=== PATIENT | female | born 1950 | race Caucasian/White ===

== ENCOUNTER 2016-10-14 05:05 | Emergency (ER) | payer MEDICARE ==
[~2016-10-14] VITALS: Ht 152.4 cm; Wt 84.5 kg
[~2016-10-14 05:05] MED LIST: CARAFATE 1GM1 G PO; CEPHALEXIN500 M1 PO; CHANTIX 1MG1 MG PO; GLIPIZIDE10 MG PO; GLUCOPHAGE1000 MG PO; GLUCOTROL XL10 MG PO; HYDROCODONE/APAP; LASIX 40MG TABL40 MG PO; LORTAB 5/500 501 TAB PO; METFORMIN500 MG PO; NEURONTIN800 MG/TAB PO; NO HOME MEDICATIONS; NORCO 325 MG-51 TAB PO; NORCO 325 MG-7.1 TAB PO; PRILOSEC 20MG20 MG PO; SYNTHROID0.125 MG/T PO; TRILIPIX 135MG; TUSS PO; ZOFRAN 4MG T4 MG/TAB PO; [UNRECOGNIZED DRUG - OTHER]
[2016-10-14 05:07] VITALS: BP 139/67; PULSE 88; TEMP 98.2
[2016-10-14] MEDS ORDERED: PRAVACHOL 40MG40 MG PO (05:13)
[2016-10-14] MEDS ORDERED: LOPID 600M600 MG/TAB PO (05:13)
[2016-10-14] MEDS ORDERED: PREDNISONE20 MG PO (06:09)
[2016-10-14] MEDS ORDERED: VOLTAREN 75 DR75 MG PO (06:09)
== END 2016-10-14 06:19 | disposition home or self-care (01) ==
LOC: COL.ER 05:05
DX: M25.551 Pain in right hip (principal); E11.9 Type 2 diabetes mellitus without complications; G89.29 Other chronic pain; M54.9 Dorsalgia, unspecified; Z79.84 Long term (current) use of oral hypoglycemic drugs
CPT/HCPCS: J1885; J7512

== ENCOUNTER → 2018-01-27 | Outpatient (CLI) | payer MEDICARE ==
[~2018-01-27] MED LIST changes: +LOPID 600M600 MG/TAB PO; +PRAVACHOL 40MG40 MG PO; +PREDNISONE20 MG PO; +VOLTAREN 75 DR75 MG PO
== END ==
LOC: MC.RAD 09:20
DX: Z12.31 Encounter for screening mammogram for malignant neoplasm of breast (principal)

== ENCOUNTER 2021-01-30 15:05 | Emergency (ER) | payer MEDICARE ==
[~2021-01-30] VITALS: Ht 152.4 cm; Wt 79.5 kg
[2021-01-30 16:12] LABS: ALBUMIN 3.9 gm/dL (3.5-5.0); BILIRUBIN,TOTAL 0.6 mg/dL (0.0-1.0); CALCIUM 8.5 mg/dL (8.4-10.2); CREATININE, serum 0.5 (0.52-1.25); TOTAL PROTEIN 7.4 gm/dL (6.4-8.2)
[2021-01-30 16:28] LABS: BASO % 0.2 % (0.0-2.0); EOS % 0.2 % (0-4.0); GRAN # 2.9 (1.4-6.5); GRAN % 68.8 % (42.2-75.2); HEMATOCRIT 37.2 % (37.0-47.0); HEMOGLOBIN 11.6 g/dl (12.5-16.0); LYMPH # 0.9 (1.2-3.4); LYMPH % 20.7 % (20.0-51.0); MEAN CELL VOLUME 81 fl (80.0-100.0); MEAN CORPUSCULAR HEMOGLOBIN 25 pg (27.0-31.0); MEAN CORPUSCULAR HGB CONC 31 g/dl (33.0-37.0); MEAN PLATELET VOLUME 11.8 fl (7.4-10.4); MONO # 0.4 (0.1-0.6); MONO % 9.6 % (1.7-9.3); PLATELET COUNT 117 K/mm3 (130-400); RED BLOOD COUNT 4.58 M/mm3 (4.10-5.30)
[2021-01-30] MEDS ORDERED: AMOXICILLIN 8751 TAB PO (16:45)
[2021-01-30 18:32] VITALS: BP 122/72; PULSE 83
[2021-01-31] MEDS ORDERED: EUTHYROX PO (12:13)
[2021-01-31] MEDS ORDERED: LIPITOR 40MG TA40 MG PO (12:14)
[2021-01-31] MEDS ORDERED: PRINIVIL10 MG PO (12:15)
[2021-01-31] MEDS ORDERED: LYRICA 50MG CAP50 MG PO (12:15)
== END 2021-01-30 18:32 | disposition left against medical advice (07) ==
LOC: COL.ER 15:05
PROVIDERS: Personal Emergency Response Attendant
DX: R41.82 Altered mental status, unspecified (principal); E11.649 Type 2 diabetes mellitus with hypoglycemia without coma; R09.02 Hypoxemia; Z79.84 Long term (current) use of oral hypoglycemic drugs
CPT/HCPCS: J0456; J0696; J2405; J7030; J7050

== ENCOUNTER 2021-01-31 04:46 | Inpatient (IN) | payer MEDICARE ==
[~2021-01-31] VITALS: Ht 172.7 cm; Wt 81.6 kg
[~2021-01-31 04:46] MED LIST changes: +AMOXICILLIN 8751 TAB PO
[2021-01-31 05:57] LABS: BASO % 0.5 % (0.0-2.0); GRAN # 3.4 (1.4-6.5); GRAN % 75.7 % (42.2-75.2); HEMOGLOBIN 10.6 g/dl (12.5-16.0); LYMPH # 0.7 (1.2-3.4); LYMPH % 14.7 % (20.0-51.0); MEAN CELL VOLUME 81 fl (80.0-100.0); MEAN CORPUSCULAR HEMOGLOBIN 25 pg (27.0-31.0); MEAN CORPUSCULAR HGB CONC 31 g/dl (33.0-37.0); MEAN PLATELET VOLUME 11.7 fl (7.4-10.4); MONO # 0.4 (0.1-0.6); MONO % 8.6 % (1.7-9.3); PLATELET COUNT 103 K/mm3 (130-400); RED BLOOD COUNT 4.17 M/mm3 (4.10-5.30); REDCELL DISTRIBUTION WIDTH-CV 16.5 % (11.5-14.5)
[2021-01-31 06:02] LABS: HEMATOCRIT 33.8 % (37.0-47.0)
[2021-01-31 06:08] LABS: ALANINE AMINOTRANSFERASE 80 U/L (4-34); ALBUMIN 3.4 gm/dL (3.5-5.0); ALKALINE PHOSPHATASE 107 U/L (50-136); ANION GAP 7 mmol/L (7-16); AST,SGOT 93 U/L (15-37); BILIRUBIN,TOTAL 0.4 mg/dL (0.0-1.0); BLOOD UREA NITROGEN 12 mg/dL (7-17); CALCIUM 7.9 mg/dL (8.4-10.2); CARBON DIOXIDE 28 mmol/L (22-30); CHLORIDE 98 mmol/L (98-107); CREATININE, serum 0.51 (0.52-1.25); GLUCOSE 60 mg/dL (74-106); POTASSIUM 4.1 mmol/L (3.4-5.0); SODIUM 133 mmol/L (137-145); TOTAL PROTEIN 6.9 gm/dL (6.4-8.2)
[2021-01-31 06:34] LABS: TROPONIN-I < 0.012 ng/mL (0.000-0.035)
[2021-01-31] MEDS ORDERED: EUTHYROX PO (12:13)
[2021-01-31] MEDS ORDERED: LIPITOR 40MG TA40 MG PO (12:14)
[2021-01-31] MEDS ORDERED: PRINIVIL10 MG PO (12:15)
[2021-01-31] MEDS ORDERED: LYRICA 50MG CAP50 MG PO (12:15)
[2021-01-31 12:58] VITALS: BP 104/43; PULSE 78; TEMP 98.9
[2021-01-31 17:15] VITALS: BP 107/50; PULSE 76; TEMP 98.8
--- NOTE | 2021-01-31 19:00 | NUR ---
Patient arrived to the floor from ED. Patient has c/o pain, as she does have chronic back pain. Patient has been having loose stools. They are dark green in color. Patient is incontinent but independent with care.
--- NOTE | 2021-01-31 19:13 | NUR ---
New IV started in the right forearm by PEDRO Yancey.
[2021-01-31 19:41] VITALS: BP 110/54; PULSE 65; TEMP 98.3
--- NOTE | 2021-01-31 22:23 | NUR ---
PT RESTING IN BED. EVENING MEDICATIONS GIVEN. PT ON 2L NC, LUNG SOUNDS ARE DIMINISHED. PT STATES SHES IN PAIN, TYLENOL GIVEN PER ORDERS. PT HAS A PRODUCTIVE COUGH BUT STATES SHE HAS NOT SEEN WHAT THE SPUTUM LOOKS LIKE. DENIES ANY OTHER NEEDS AT THIS TIME. WILL CONTINUE TO MONITOR.
[2021-02-01 00:07] VITALS: BP 108/53; PULSE 59; TEMP 98.9
[2021-02-01 04:17] VITALS: BP 96/44; PULSE 66; TEMP 97.8
[2021-02-01 07:53] LABS: BASO % 0.2 % (0.0-2.0); GRAN # 3.9 (1.4-6.5); GRAN % 80.4 % (42.2-75.2); HEMATOCRIT 34.9 % (37.0-47.0); HEMOGLOBIN 10.3 g/dl (12.5-16.0); LYMPH # 0.6 (1.2-3.4); LYMPH % 12.7 % (20.0-51.0); MEAN CELL VOLUME 85 fl (80.0-100.0); MEAN CORPUSCULAR HEMOGLOBIN 25 pg (27.0-31.0); MEAN CORPUSCULAR HGB CONC 30 g/dl (33.0-37.0); MEAN PLATELET VOLUME 11.3 fl (7.4-10.4); MONO # 0.3 (0.1-0.6); MONO % 6.3 % (1.7-9.3); PLATELET COUNT 121 K/mm3 (130-400); REDCELL DISTRIBUTION WIDTH-CV 16.8 % (11.5-14.5)
[2021-02-01 08:02] LABS: CALCIUM 8.4 mg/dL (8.4-10.2); CREATININE, serum 0.45 (0.52-1.25); POTASSIUM 4.1 mmol/L (3.4-5.0)
[2021-02-01 08:42] VITALS: BP 99/38; PULSE 76; TEMP 101
--- NOTE | 2021-02-01 09:15 | NUR ---
Patient laying in bed upon entering the room. She is mad that she has not received her hydrocodone yet. Patient also requesting medication for her diarrhea. This RN notified the hospitalist. Whilst this RN was flushing the patient's IV with NS, the patient screamed, stating, "Oh thats just horrible". There is a bit of resistance when flushing and some mild ecchymosis is present above the IV site. This RN stopped and is waiting to give IV medications until it is decided if the patient needs PICC placement.
[2021-02-01 13:07] VITALS: BP 105/46; PULSE 76; TEMP 99.6
[2021-02-01 16:00] VITALS: BP 102/49; PULSE 94; TEMP 98.7
--- NOTE | 2021-02-01 18:06 | NUR ---
Patient frustrated that she can only receive her PRN pain medication every 8hrs. All medications administered. Handled PICC placement well.
[2021-02-01 20:39] VITALS: BP 123/57; PULSE 63; TEMP 99.4
--- NOTE | 2021-02-01 22:27 | NUR ---
Patient alert and oriented. Patient denies SOB or dyspnea. Patient currently on oxygen 3L via NC. Breathing even and unlabored. Occasional non-productive moist cough noted. Scheduled cough med given per JUL. Patient reports moderate pain to her lower extremities. Scheduled pain med given per JUL. Call light within reach. Will continue to monitor.
[2021-02-02] VITALS: BP 108/56; PULSE 66; TEMP 99
[2021-02-02 03:25] VITALS: BP 131/66; PULSE 60; TEMP 98.3
--- NOTE | 2021-02-02 07:44 | NUR ---
paste up worker spoke with patient to discuss discharge planning. Patient states she resides with her spouse and plans to return there upon discharge. Patient states she is independent with her activities of daily living at home and currently in her room. Patient's primary care provides is Dr Roberto. Patient states she does not have advance directives and is not interested in making them. Patient plans to return home upon discharge.
[2021-02-02 07:58] LABS: MEAN CELL VOLUME 81 fl (80.0-100.0); MEAN CORPUSCULAR HGB CONC 31 g/dl (33.0-37.0); MEAN PLATELET VOLUME 11.3 fl (7.4-10.4); PLATELET COUNT 120 K/mm3 (130-400); RED BLOOD COUNT 3.53 M/mm3 (4.10-5.30); REDCELL DISTRIBUTION WIDTH-CV 16.9 % (11.5-14.5)
[2021-02-02 08:01] LABS: C-REACTIVE PROTEIN 5.3 mg/dL (0.0-0.9); CALCIUM 7.8 mg/dL (8.4-10.2); CREATININE, serum 0.4 (0.52-1.25); POTASSIUM 3.7 mmol/L (3.4-5.0)
[2021-02-02 08:10] LABS: HEMATOCRIT 28.7 % (37.0-47.0); HEMOGLOBIN 8.8 g/dl (12.5-16.0); MEAN CORPUSCULAR HEMOGLOBIN 25 pg (27.0-31.0)
[2021-02-02 09:47] VITALS: BP 115/62; PULSE 66; TEMP 97.8
--- NOTE | 2021-02-02 10:50 | NUR ---
Pt awake upon entry to room, minor C/O pain. Shift assessment complete, left Pt call light in light in reach. bed in lowest position.
[2021-02-02 11:10] LABS: PLATELET ESTIMATE DECREASED (NORMAL)
[2021-02-02 11:11] LABS: HYPOCHROMIA 2+; OVALOCYTES 1+; POIKILOCYTOSIS 1+
[2021-02-02 11:12] LABS: ANISOCYTOSIS 1+
[2021-02-02 13:00] VITALS: BP 127/56; PULSE 65; TEMP 98.4
[2021-02-02] MEDS ORDERED: EUTHYROX137 MCG PO (14:23)
[2021-02-02 16:58] VITALS: BP 106/47; PULSE 56; TEMP 97.3
[2021-02-02 20:00] VITALS: BP 117/74; PULSE 82; TEMP 98
--- NOTE | 2021-02-02 23:14 | NUR ---
ALERT AND OX4. DENIES SOA, CHEST PAIN OR DIZZY. BLOOD SUGAR TX PER SLIDING SCALE. PICC LINE RT UPPER ARM FLUSHED W GOOD BLOOD RETURN. PM MEDS GIVEN. VITALS STABLE. CALL LIGHT WI REACH. BED LOW POSITION. NEEDS MET.
[2021-02-03 00:32] VITALS: BP 107/58; PULSE 59; TEMP 98.1
[2021-02-03 04:56] VITALS: BP 104/58; PULSE 68; TEMP 98.3
--- NOTE | 2021-02-03 06:11 | NUR ---
PT RESTED THROUGH THE NIGHT WITHOUT INCIDENT. NEEDS MET.
[2021-02-03 07:05] LABS: MEAN CELL VOLUME 83 fl (80.0-100.0); MEAN CORPUSCULAR HGB CONC 30 g/dl (33.0-37.0); MEAN PLATELET VOLUME 11.2 fl (7.4-10.4); PLATELET COUNT 120 K/mm3 (130-400); RED BLOOD COUNT 3.36 M/mm3 (4.10-5.30); REDCELL DISTRIBUTION WIDTH-CV 16.7 % (11.5-14.5)
[2021-02-03 07:15] LABS: HEMOGLOBIN 8.5 g/dl (12.5-16.0); MEAN CORPUSCULAR HEMOGLOBIN 25 pg (27.0-31.0)
[2021-02-03 07:16] LABS: CALCIUM 7.8 mg/dL (8.4-10.2); CREATININE, serum 0.41 (0.52-1.25); POTASSIUM 3.5 mmol/L (3.4-5.0)
[2021-02-03 08:02] LABS: BAND 1 % (0-10); BASOPHIL 3 % (0-2); LYMPHOCYTE 21 % (20.0-51.0); METAMYELOCYTE 1 % (0-0); NEUTROPHILS 71 % (42.0-75.2); PLATELET ESTIMATE DECREASED (NORMAL)
[2021-02-03 08:03] LABS: ANISOCYTOSIS 1+; HYPOCHROMIA 3+; OVALOCYTES 1+
[2021-02-03 08:06] VITALS: BP 97/50; PULSE 54; TEMP 98.1
--- NOTE | 2021-02-03 09:17 | NUR ---
Pt awake upon entry, no C/O pain at this tiem, talkative. Shift assessments complete, left Pt call light in reach, bed in lowest position.
[2021-02-03 12:53] VITALS: BP 116/43; PULSE 54; TEMP 97.6
[2021-02-03 17:43] VITALS: BP 124/51; PULSE 67; TEMP 98.2
[2021-02-03 20:00] VITALS: BP 119/52; PULSE 57; TEMP 98.5
--- NOTE | 2021-02-03 20:14 | NUR ---
Patient is sitting in room. Complains of pain in left lower leg. Iselin provided. VSS. Assessment completed. She is on 1 L 02 nasal canula. Tele in place. No SOB. No further needs at this time. Call light within reach.
[2021-02-04] VITALS: BP 117/42; PULSE 58; TEMP 98.5
[2021-02-04 04:14] VITALS: BP 117/50; PULSE 58; TEMP 98.8
--- NOTE | 2021-02-04 06:38 | NUR ---
Patient has been stable, no need of additional oxygen. Continues with cough. No other complains or needs at the moment. Shift report will be given.
[2021-02-04 08:34] LABS: MEAN CELL VOLUME 83 fl (80.0-100.0); MEAN CORPUSCULAR HGB CONC 31 g/dl (33.0-37.0); MEAN PLATELET VOLUME 11.3 fl (7.4-10.4); PLATELET COUNT 151 K/mm3 (130-400); RED BLOOD COUNT 3.65 M/mm3 (4.10-5.30); REDCELL DISTRIBUTION WIDTH-CV 16.6 % (11.5-14.5)
[2021-02-04 08:39] LABS: HEMATOCRIT 30.1 % (37.0-47.0); HEMOGLOBIN 9.3 g/dl (12.5-16.0); MEAN CORPUSCULAR HEMOGLOBIN 25 pg (27.0-31.0)
[2021-02-04 08:44] LABS: NEUTROPHILS 64 % (42.0-75.2)
[2021-02-04 08:45] LABS: LYMPHOCYTE 18 % (20.0-51.0)
[2021-02-04 08:45] LABS: ALBUMIN 2.9 gm/dL (3.5-5.0); CALCIUM 8.2 mg/dL (8.4-10.2); CREATININE, serum 0.37 (0.52-1.25); POTASSIUM 3.6 mmol/L (3.4-5.0); TOTAL PROTEIN 5.7 gm/dL (6.4-8.2)
[2021-02-04 08:46] VITALS: BP 137/50; PULSE 56; TEMP 97.8
[2021-02-04 08:49] LABS: BAND 8 % (0-10)
[2021-02-04 08:56] LABS: BILIRUBIN UNCONJUGATED 0.5 mg/dL (0.0-1.1); BILIRUBIN,TOTAL 0.4 mg/dL (0.0-1.0)
[2021-02-04 09:13] LABS: BAND 15 % (0-10); LYMPHOCYTE 23 % (20.0-51.0); NEUTROPHILS 57 % (42.0-75.2)
[2021-02-04 09:14] LABS: OVALOCYTES 1+; PLATELET ESTIMATE NORMAL (NORMAL)
[2021-02-04 09:15] LABS: ANISOCYTOSIS 1+
[2021-02-04 09:16] LABS: MICROCYTOSIS 1+
--- NOTE | 2021-02-04 09:59 | NUR ---
Pt awake upon entry. No C/O pain at this time. Shift assessment complete, left Pt call light in reach, bed in lowest position.
[2021-02-04 12:43] VITALS: BP 125/51; PULSE 59; TEMP 98
[2021-02-04 17:00] VITALS: BP 159/73; PULSE 72; TEMP 98.1
[2021-02-04 20:08] VITALS: BP 116/44; PULSE 61; TEMP 97.6
--- NOTE | 2021-02-04 21:21 | NUR ---
Patient is sitting in bed, alert and oriented x 4. No O2 needed. VSS. She just complains of pain in her left leg from knee to toes. [place] provided. Assessment completed, medications provided. No further needs at this time. Call light within reach.
--- NOTE | 2021-02-04 22:44 | NUR ---
PICC line do not allows for blood return. It is able to flush both ports.
[2021-02-05 00:02] VITALS: BP 127/42; PULSE 53; TEMP 97.8
[2021-02-05 04:03] VITALS: BP 141/72; PULSE 56; TEMP 98.5
--- NOTE | 2021-02-05 05:57 | NUR ---
Patient has had a good night. Her cough is sporadic. Continues with pain, PRN provided. No O2 required, good oxygenation at RA. No SOA or dizziness. No further needs at this time. Report to day nurse will be given.
[2021-02-05 08:09] VITALS: BP 138/61; PULSE 57; TEMP 97.9
[2021-02-05 08:09] LABS: MEAN CELL VOLUME 81 fl (80.0-100.0); MEAN CORPUSCULAR HGB CONC 31 g/dl (33.0-37.0); MEAN PLATELET VOLUME 11.3 fl (7.4-10.4); PLATELET COUNT 166 K/mm3 (130-400); RED BLOOD COUNT 3.93 M/mm3 (4.10-5.30); REDCELL DISTRIBUTION WIDTH-CV 16.3 % (11.5-14.5)
[2021-02-05 08:17] LABS: HEMOGLOBIN 9.9 g/dl (12.5-16.0); MEAN CORPUSCULAR HEMOGLOBIN 25 pg (27.0-31.0)
[2021-02-05 08:28] LABS: BILIRUBIN,TOTAL 0.8 mg/dL (0.0-1.0); CALCIUM 8.3 mg/dL (8.4-10.2); CREATININE, serum 0.39 (0.52-1.25); POTASSIUM 3.5 mmol/L (3.4-5.0); TOTAL PROTEIN 6.1 gm/dL (6.4-8.2)
[2021-02-05] MEDS ORDERED: DECADRON6 MG PO (09:41)
--- NOTE | 2021-02-05 09:44 | NUR ---
Pt awake and walking in room upon entry, no C/O pain this morning. Shift assessment complete, left Pt in bed, call light in reach, bed in lowest position.
[2021-02-05 10:43] LABS: ANISOCYTOSIS 1+; BAND 3 % (0-10); HYPOCHROMIA 2+; LYMPHOCYTE 14 % (20.0-51.0); METAMYELOCYTE 1 % (0-0); NEUTROPHILS 77 % (42.0-75.2); PLATELET ESTIMATE NORMAL (NORMAL)
[2021-02-05 10:44] LABS: OVALOCYTES 1+
--- NOTE | 2021-02-05 12:00 | NUR ---
Pt discharged to home, discussed discharge packet with Pt, answered questions. Escorted Pt to entrance via WC, assisted Pt into vehicle, Pt left with spouse via private transportation.
[2021-02-05 12:12] VITALS: BP 152/69; PULSE 70; TEMP 98
[2021-02-05 12:20] VITALS: BP 152/69; PULSE 70; TEMP 98
== END 2021-02-05 12:00 | disposition home or self-care (01) | DRG 177 ==
LOC: COL.ER 04:46 → MEDICAL 08:50
PROVIDERS: Emergency Medicine; ADMIT Student in an Organized Health Care Education/Training Program
PROC: 02HV33Z Insertion of Infusion Device into Superior Vena Cava, Percutaneous Approach (ICD-10-PCS; principal; 2021-02-01)
PROC: XW033E5 Introduction of Remdesivir Anti-infective into Peripheral Vein, Percutaneous Approach, New Technology Group 5 (ICD-10-PCS; 2021-02-02)
DX: U07.1 COVID-19 (principal); J96.01 Acute respiratory failure with hypoxia; J12.82 Pneumonia due to coronavirus disease 2019; F17.210 Nicotine dependence, cigarettes, uncomplicated; R50.9 Fever, unspecified; E11.649 Type 2 diabetes mellitus with hypoglycemia without coma; M48.00 Spinal stenosis, site unspecified; G89.29 Other chronic pain; M54.9 Dorsalgia, unspecified; R41.82 Altered mental status, unspecified; Z90.89 Acquired absence of other organs; Z90.710 Acquired absence of both cervix and uterus; Z98.51 Tubal ligation status; Z79.84 Long term (current) use of oral hypoglycemic drugs
CPT/HCPCS: 99222-AI; 99232-AI; 99233-AI; 99239; C1751; J0456; J0696; J1100; J1650; J1815; J2405; J2930; J7030; J7050

== ENCOUNTER 2023-11-14 09:47 | Day surgery (SDC) | payer MEDICARE ==
[~2023-11-14] VITALS: Ht 154.9 cm; Wt 84.4 kg
[~2023-11-14 09:47] MED LIST changes: +DECADRON6 MG PO; +EUTHYROX PO; +EUTHYROX137 MCG PO; +LIPITOR 40MG TA40 MG PO; +LR 1,000 ML IV SCH; +LYRICA 50MG CAP50 MG PO; +Ondansetron 4 MG/2 ML VIAL IV PRN; +PRINIVIL10 MG PO
[2023-11-14] MEDS ORDERED: ASPIRIN E.C. 8181 MG PO (10:37)
[2023-11-14] MEDS ORDERED: COZAAR 25MG25 MG/TAB PO (10:38)
[2023-11-14] MEDS ORDERED: FOSAMAX 70MG TA70 MG PO (10:40)
[2023-11-14] MEDS ORDERED: INDERAL40 MG PO (10:41)
[2023-11-14] MEDS ORDERED: LYRICA 150MG C150 MG PO (10:42)
[2023-11-14 10:58] VITALS: BP 128/61; PULSE 54; TEMP 97.7
[2023-11-14 12:04] VITALS: BP 111/50; PULSE 64; TEMP 97.5
[2023-11-14 12:19] VITALS: BP 110/54; PULSE 68
--- NOTE | 2023-11-14 12:23 | NUR ---
1034 INTO PRE-OP Patient ambulatory to bay 5 with steady gait, breathing even and unlabored. Pt is alert and oriented, accompanied by her . Consents reviewed and signed by the patient. IV established. LR infusion via gravity at KVO. Call light in reach. Warm blanket provided.
[2023-11-14 12:34] VITALS: BP 124/55; PULSE 64
--- NOTE | 2023-11-14 12:40 | NUR ---
1204 REUTNS TO ROOM 5 PER CART. AWAKE, ALERT. RESP UNLABORED. AMBULATES TO RECLINER WITH STANDBY ASSIST. DENIES NAUSEA OR ABD PAIN. VITAL SIGNS OBTAINED. CALL LIGHT AT SIDE. IN ROOM 1210 TOLERATES PO JUICE WITHOUT NAUSEA. 1215 DISCHARGE INSTRUCTIONS REVIEWED. PATIENT VERBALIZES UNDERSTANDING. COPY PROVIDED IN DISCHARGE FOLDER 1229 DR WILKES HERE TO VISIT WITH PATIENT 1235 DRESSES SELF
== END 2023-11-14 12:44 ==
LOC: SDCO 09:47
DX: Z12.11 Encounter for screening for malignant neoplasm of colon (principal); D12.2 Benign neoplasm of ascending colon; D17.5 Benign lipomatous neoplasm of intra-abdominal organs; F17.210 Nicotine dependence, cigarettes, uncomplicated
CPT/HCPCS: J2704; J7120